=== PATIENT | male | born 1955 | race Caucasian/White ===

== ENCOUNTER 2021-06-02 08:55 | Day surgery (SDC) | payer OTHER ==
[~2021-06-02] VITALS: Ht 185.4 cm; Wt 81.8 kg
[2021-06-02 09:24] LABS: BASOPHILS 1.4 % (0-2); EOSINOPHILS 4.5 % (0-7); HEMATOCRIT 45.6 % (42.0-54.0); HEMOGLOBIN 15.6 g/dL (13.5-17.5); LYMPHOCYTES 17.9 % (15-50); MCH 37.6 pg (26.0-34.0); MCHC 34.3 g/dL (31.0-37.0); MCV 109.6 fL (80.0-100.0); MEAN PLATELET VOLUME 6.2 fL (7.4-10.4); MONOCYTES 10.8 % (2-11); NEUTROPHILS 65.4 % (40-80); PLATELET COUNT 200 10x3/uL (130-400); RBC 4.16 10x6/uL (4.20-6.10); RDW 13.7 % (11.5-14.5); WBC 4.5 10x3/uL (4.8-10.8)
[2021-06-02 09:28] LABS: CALC OSMOLALITY 272 mosm/kg (275-300); CARBON DIOXIDE 32.1 mmol/L (21.0-32.0); CHLORIDE - SERUM 100 mmol/L (98-107); CREATININE - SERUM 0.9 mg/dL (0.6-1.3); GLUCOSE 106 mg/dL (74-106); POTASSIUM - SERUM 4.3 mmol/L (3.5-5.1); SODIUM 137 mmol/L (136-145); UREA NITROGEN 10 mg/dL (7-18); eGFR NON AFRICAN AMERICAN 90 mL/min (90-120)
[2021-06-02 09:29] LABS: INR 1.05 (0.85-1.17); PROTIME 12.6 SECONDS (11.6-15.0)
[2021-06-02 09:45] LABS: APTT 24.3 SECONDS (22.8-39.4)
[2021-06-02] MEDS ORDERED: ZOLOFT100 MG PO (10:58)
[2021-06-02] MEDS ORDERED: BREZTRI INHALER INH (11:01)
[2021-06-02 11:13] VITALS: BP 149/86; Ht 185.4 cm; Wt 81.8 kg
--- NOTE | 2021-06-02 15:00 | NUR ---
DISCHARGE INSTRUCTIONS REVIEWED WITH PT AND SISTER. COPY PROVIDED AND BOTH VOICED UNDERSTANDING.
--- NOTE | 2021-06-02 15:51 | NUR ---
IV DC'D WITH CATH TIP INTACT. PT WITHOUT C/O SOB. VSS. DRESSING TO LEFT POSTERIOR LATERAL CHEST REMAINS CDI. PT UP TO GET DRESSED FOR DISCHARGE HOME.
--- NOTE | 2021-06-02 16:00 | NUR ---
DISCHARGED VIA W/C, ACCOMPANIED BY THIS NURSE, TO POV WITH SISTER DRIVING. ALL BELONGINGS WITH PT/SISTER.
== END 2021-06-02 16:00 | disposition home or self-care (01) ==
LOC: D.CT 08:55
PROVIDERS: General Practice; ATTEND Internal Medicine Medical Oncology
DX: R91.1 Solitary pulmonary nodule (principal); Z85.72 Personal history of non-Hodgkin lymphomas